=== PATIENT | male | born 1980 | race African-American/Black ===

== ENCOUNTER 2017-10-12 12:08 | Emergency (ER) | payer SELFPAY ==
[2017-10-12] MEDS ORDERED: Proparacaine 0.5% Opth 15 ML BOT ONE (14:09)
[2017-10-12] MEDS ORDERED: Fluorescein Opthalmic Strip ONE (14:09)
== END 2017-10-12 14:54 | disposition home or self-care (01) ==
LOC: ERS 12:08
DX: H10.9 Unspecified conjunctivitis (principal); J30.2 Other seasonal allergic rhinitis; F17.210 Nicotine dependence, cigarettes, uncomplicated
CPT/HCPCS: 99283

== ENCOUNTER 2017-11-12 11:16 | Emergency (ER) | payer SELFPAY ==
[2017-11-12] MEDS ORDERED: methylPREDNISolone Sod Succ/PF 125 MG/2 ML VIAL ONE (12:23)
[2017-11-12] MEDS ORDERED: Ketorolac Tromethamine 30 MG/ML VIAL ONE (12:23)
== END 2017-11-12 13:05 | disposition home or self-care (01) ==
LOC: ERS 11:16
DX: S39.012A Strain of muscle, fascia and tendon of lower back, initial encounter (principal); J45.909 Unspecified asthma, uncomplicated; F17.210 Nicotine dependence, cigarettes, uncomplicated; X50.0XXA Overexertion from strenuous movement or load, initial encounter; Y99.0 Civilian activity done for income or pay
CPT/HCPCS: 96372; J1885; J2930

== ENCOUNTER 2020-11-12 10:12 | Emergency (ER) | payer SELFPAY | END 2020-11-12 10:33 | disposition home or self-care (01) | LOC: ERS 10:12 | DX: K13.0 Diseases of lips (principal); J45.909 Unspecified asthma, uncomplicated; F17.210 Nicotine dependence, cigarettes, uncomplicated | CPT/HCPCS: 99282 ==

== ENCOUNTER 2021-07-13 12:07 | Emergency (ER) | payer SELFPAY ==
[2021-07-13] MEDS ORDERED: Acetaminophen 500 MG TAB ONE (13:07)
[2021-07-14 13:19] LABS: SARS-CoV-2 PCR by NAA DETECTED (NotDetected)
== END 2021-07-13 13:14 | disposition home or self-care (01) ==
LOC: ERS 12:07
DX: U07.1 COVID-19 (principal); J45.909 Unspecified asthma, uncomplicated
CPT/HCPCS: 87804; 99284; U0003; U0005

== ENCOUNTER 2021-08-26 22:30 | Emergency (ER) | payer OTHER ==
[2021-08-26] MEDS ORDERED: HYDROcodone/Acetaminophen 10/325 mg Tablet ONE (23:22)
== END 2021-08-27 00:18 | disposition home or self-care (01) ==
LOC: ERS 22:30
DX: S16.1XXA Strain of muscle, fascia and tendon at neck level, initial encounter (principal); S39.012A Strain of muscle, fascia and tendon of lower back, initial encounter; J45.909 Unspecified asthma, uncomplicated; V49.49XA Driver injured in collision with other motor vehicles in traffic accident, initial encounter
CPT/HCPCS: 70450; 72100; 72125

== ENCOUNTER 2021-11-17 11:10 | Emergency (ER) | payer OTHER ==
[2021-11-17] MEDS ORDERED: Ketorolac Tromethamine 30 MG/ML VIAL ONE (11:56)
== END 2021-11-17 12:28 | disposition home or self-care (01) ==
LOC: ERS 11:10
DX: M54.50 Low back pain, unspecified (principal); V49.40XA Driver injured in collision with unspecified motor vehicles in traffic accident, initial encounter
CPT/HCPCS: 71045; 94760; 96372; J1885

== ENCOUNTER 2022-03-18 13:09 | Emergency (ER) | payer OTHER, SELFPAY | END 2022-03-18 14:13 | disposition home or self-care (01) | LOC: ERS 13:09 | DX: K64.4 Residual hemorrhoidal skin tags (principal); F17.210 Nicotine dependence, cigarettes, uncomplicated | CPT/HCPCS: 99282 ==